=== PATIENT | male | born 1985 | race African-American/Black ===

== ENCOUNTER 2018-02-10 08:28 | Emergency (ER) | payer OTHER | END 2018-02-10 09:54 | disposition home or self-care (01) | LOC: ER 09:54 | DX: S29.011A Strain of muscle and tendon of front wall of thorax, initial encounter (principal); W18.2XXA Fall in (into) shower or empty bathtub, initial encounter; Y93.89 Activity, other specified; Y99.8 Other external cause status; Y92.89 Other specified places as the place of occurrence of the external cause | CPT/HCPCS: 73030; 99284 ==